=== PATIENT | female | born 1960 | race Caucasian/White ===

== ENCOUNTER 2017-03-26 08:14 | Day surgery (SDC) | payer OTHER ==
[2017-03-21 10:02] VITALS: Ht 161.3 cm; Wt 141.7 kg
--- NOTE | 2017-03-21 10:37 | PAT Medication Instructions ---
Service Date Mar 21, 2017. Current Home Medication List Lzavxhs-Cpwjfcmtvlvrl-Irmvtfur (Excedrin Migraine), 1 TAB PO QD PRN for Migraine Eletriptan (Relpax), 20 MG PO DIRECTED PRN for Migraine Metoprolol Tartrate (Lopressor) (Lopressor), 1 TAB PO QDL Medication Instructions For Your Scheduled Surgery - Hold the following medications from now until surgery: Bkefckr-Zikjiwzwcavut-Padfjozs (Excedrin Migraine), 1 TAB PO QD PRN for Migraine - Take the following medications the morning of surgery with a sip of water: Metoprolol Tartrate (Lopressor) (Lopressor), 1 TAB PO QDL (or bring it with you , depending on surgery time) Eletriptan (Relpax), 20 MG PO DIRECTED PRN for Migraine (if needed) If you have any questions please call us at [phone] or [phone] or [phone]
--- NOTE | 2017-03-21 11:15 | DIAGNOSTIC IMAGING REPORT ---
CHEST 2 VIEWS ROUTINE HISTORY: 56 years-old Female pat preoperative exam. No acute chest complaints. COMPARISON: None available TECHNIQUE: PA and lateral views of the chest FINDINGS: Cardiomediastinal and hilar silhouettes are within normal limits. No pneumothorax, pleural effusion, focal airspace consolidation or overt pulmonary edema. The bones of the chest are grossly intact. Multilevel endplate spurring throughout the spine. IMPRESSION: No acute process. The above report was generated using voice recognition software. It may contain grammatical, syntax or spelling errors. Electronically signed by: Trip Loomis M.D. 03/21/2017 11:14 AM Dictated Date/Time: 03/21/2017 11:13 AM
[2017-03-21 11:22] LABS: BASO % 0.6 %; BASO ABS # 0.04 K/uL (0-0.2); EOS % 3.4 %; EOS ABS # 0.23 K/uL (0-0.5); HEMATOCRIT 45.2 % (37-47); HEMOGLOBIN 14.8 g/dL (12.0-16.0); IG# 0.01 K/uL (0.00-0.02); LYMPH % 35.9 %; LYMPH ABS # 2.46 K/uL (1.2-3.4); MEAN CELL VOLUME 91.5 fL (80-100); MEAN CORPUSCULAR HGB CONC 32.7 g/dl (32-36); MEAN PLATELET VOLUME 9.6 fL (7.4-10.4); MONO ABS # 0.48 K/uL (0.11-0.59); NEUT ABS # 3.63 K/uL (1.4-6.5); PLATELET COUNT 306 K/uL (130-400); WHITE BLOOD COUNT 6.85 K/uL (4.8-10.8)
[2017-03-21 11:25] LABS: CALCIUM 9.3 mg/dl (8.5-10.1); CREATININE 0.62 mg/dl (0.60-1.20); POTASSIUM 4.1 mmol/L (3.5-5.1)
--- NOTE | 2017-03-25 12:57 | HISTORY & PHYSICAL EXAMINATION ---
DATE OF ADMISSION: 03/26/2017 CHIEF COMPLAINT: Left shoulder pain. HISTORY OF PRESENT ILLNESS: A 56-year-old female patient of Dr. Bloom'ladi complaining of a fall on her left shoulder in December of 2016. She was apparently at home in her driveway when she sustained a fall. She waited for some period of time before seeking medical attention, but an MRI did confirm a rotator cuff tear, impingement and AC arthritis. After failure of conservative treatment, she wished to proceed with a left shoulder arthroscopic rotator cuff repair, subacromial decompression and possible distal clavicle excision. PAST MEDICAL HISTORY: Hypertension, snoring with no history of sleep apnea, osteoarthritis, obesity. SOCIAL HISTORY: Nonsmoker, nondrinker. PAST SURGICAL HISTORY: Right shoulder surgery and a tubal ligation. FAMILY HISTORY: Noncontributory. REVIEW OF SYSTEMS: The patient complains of left shoulder pain and weakness. Otherwise, denies any shortness of breath, chest pain, nausea, vomiting or any other joint complaints. MEDICATIONS: Include metoprolol 50 mg daily, Excedrin p.r.n. and ibuprofen p.r.n. ALLERGIES: LATEX. PHYSICAL EXAMINATION: GENERAL: Well-developed, well-nourished 56-year-old female in no acute distress. She is alert and oriented x3 and pleasant. HEAD, EYES, EARS, NOSE, AND THROAT: Normocephalic, atraumatic. Extraocular motions are intact. Pupils are equal and reactive to light. HEART: Regular rate and rhythm, no murmurs appreciated. LUNGS: Clear. ABDOMEN: Soft and nontender, bowel sounds are present. EXTREMITIES: Left shoulder reveals range of motion of 0-170 degrees with pain. She has 3/5 internal rotation, 4/5 external rotation strength. She has positive impingement maneuvering and generalized pain and crepitation with passive range of motion. DIAGNOSES: Left shoulder rotator cuff tear, acromioclavicular arthritis and impingement. She also has a history of hypertension, snoring with no history of sleep apnea, osteoarthritis and obesity. PLAN: The patient was advised of her diagnosis. Indications, risks, benefits, postop course have all been reviewed. The patient wishes to proceed with a left shoulder arthroscopic rotator cuff repair, possible subacromial decompression and possible distal clavicle excision. Necessary consent forms, preoperative testing and clearances will be obtained.
[~2017-03-26] VITALS: Ht 161.3 cm; Wt 141.7 kg
[~2017-03-26 08:14] MED LIST: ASPI-390 PO; CEFAZOLIN 3000MG IV PUSH 15 ML IV SCH; CEFAZOLIN IV 3,000 MG in SYRINGE 0 ML IV SCH; DEXAMETHASONE SOD INJ 4 MG/ML VIAL ONE; ELET20TA PO; LACTATED RINGER'S 1000ML 1,000 ML IV SCH; METO50TA16 PO; ROPIVACAINE 0.5% 5 MG/ML 30 ML VIAL ONE
[2017-03-26] MEDS ORDERED: EpHEDrine SULFATE INJ 50 MG/ML AMP IV PRN (08:15)
[2017-03-26] MEDS ORDERED: ATROPINE SULFATE 0.1 MG/ML 5ML SYR IV PRN (08:15)
[2017-03-26] MEDS ORDERED: ONDANSETRON INJ 2 MG/ML 2 ML VIAL IV PRN (08:15)
[2017-03-26] MEDS ORDERED: HYDROmorphone INJ 2 MG/ML SYR/VIAL IV PRN (08:15)
[2017-03-26] MEDS ORDERED: PHENYLEPHRINE 100MCG/ML 5ML SYR IV PRN (08:15)
[2017-03-26 08:50] VITALS: BP 150/93; PULSE 93; TEMP 36.5; O2SAT 95
[2017-03-26] MEDS ORDERED: EpINEphrine HCL INJ 1 MG/ML 1ML SYRINGE ONE ×2 (09:45→11:45)
[2017-03-26] MEDS ORDERED: MIDAZOLAM HCL 1 MG/ML 2ML VIAL ONE (10:11)
[2017-03-26] MEDS ORDERED: FENTANYL CITRATE INJ 50 MCG/1 ML 2 ML VIAL ONE ×3 (10:15→14:32)
--- NOTE | 2017-03-26 10:46 | History & Physical Bridge Note ---
H&P Re-Evaluation Bridge Note: I have examined the patient, reviewed the History & Physical and in the interval since the performance of the History & Physical I have noted the following changes of clinical significance: No changes noted
[2017-03-26] MEDS ORDERED: HYDROmorphone INJ 2 MG/ML SYR/VIAL ONE ×2 (12:05→14:39)
[2017-03-26] MEDS ORDERED: SUCCINYLCHOLINE CHLORIDE 20 MG/ML 10 ML VIAL IV ONE (12:34)
[2017-03-26] MEDS ORDERED: ROCURONIUM BROMIDE 10 MG/ML 5 ML VIAL IV ONE (12:34)
[2017-03-26] MEDS ORDERED: ONDANSETRON INJ 2 MG/ML 2 ML VIAL ONE ×2 (12:34→15:28)
[2017-03-26] MEDS ORDERED: ALBUTEROL HFA INHALER 8.5 GM INH ONE (12:34)
[2017-03-26] MEDS ORDERED: LIDOCAINE HCL 2% 2 ML VIAL (20MG/ML) ONE (12:34)
[2017-03-26] MEDS ORDERED: PHENYLEPHRINE HCL INJ 10 MG/ML VIAL ONE (12:34)
[2017-03-26] MEDS ORDERED: DEXAMETHASONE SOD INJ 4 MG/ML VIAL ONE (12:34)
[2017-03-26] MEDS ORDERED: ETOMIDATE 2 MG/ML 20 ML VIAL IV ONE (14:32)
[2017-03-26] MEDS ORDERED: GLYCOPYRROLATE INJ 0.2 MG/ML VIAL ONE (14:42)
[2017-03-26] MEDS ORDERED: NEOSTIGMINE METHYLSULFATE 5 MG/5 ML SYR ONE (14:42)
[2017-03-26] MEDS ORDERED: KETOROLAC TROMETHAMINE 30 MG/ML VIAL ONE (14:42)
--- NOTE | 2017-03-26 14:44 | [facility] Post Operative Brief Note ---
Immediate Operative Summary Operative Date Mar 26, 2017. Pre-Operative Diagnosis left shoulder rotator cuff tear, acromioclavicular arthritis and impingement.morbid obesity bmi 54.5 Post-Operative Diagnosis left shoulder rotator cuff tear, acromioclavicular arthritis and impingement with bicep tendon rupture,morbid obesity Procedure(s) Performed Left Shoulder Arthroscopy with Subacromial Decompression, Distal Clavicle Excision, Debridement and Suture placement, Open Rotator Cuff Repair, Supraspinatus and Subscapularis,increased difficulty morbid obesity Surgeon [facility] Attendant Surgeon(s) DEWAYNE Puga Estimated Blood Loss 20ml Findings as above Specimens none per surgeon Drains none Anesthesia general regional Complication(s) None Disposition Recovery Room / PACU
[2017-03-26] MEDS ORDERED: OXYC-57 PO (15:00)
[2017-03-26] MEDS ORDERED: OXYCODONE/ACETAMINOPHEN 5-325 TAB PO PRN ×2 (15:00)
[2017-03-26] MEDS ORDERED: METOPROLOL TARTRATE 1 MG/ML VIAL ONE (15:01)
--- NOTE | 2017-03-26 15:03 | Discharge Instructions ---
Discharge Instructions Date of Service Mar 26, 2017. Admission Reason for Admission: Left Shoulder Rotator Cuff Tear, Impingement Syndr Discharge Discharge Diagnosis / Problem: Left shoulder Rotator cuff repair, open. Discharge Goals Goal(s): Improve function Activity Recommendations Activity Limitations: as noted below . Instructions / Follow-Up Instructions / Follow-Up Please see home instructions and exercises printed in your chart. Percocet for pain as needed. No formal physical therapy needed until follow up. Follow up with Dr. Bloom 10-12 days post op as scheduled, call [phone] to confirm. Current Hospital Diet Patient's current hospital diet: Discharge Diet Recommended Diet: Regular Diet Procedures Procedures Performed: Left Shoulder Arthroscopy with Subacromial Decompression, Distal Clavicle Excision, Debridement and Suture placement, Open Rotator Cuff Repair, Supraspinatus and Subscapularis,increased difficulty morbid obesity Pending Studies Studies pending at discharge: no Medical Emergencies . Who to Call and When: Medical Emergencies: If at any time you feel your situation is an emergency, please call 911 immediately. . Non-Emergent Contact Non-Emergency issues call your: Primary Care Provider . "Provider Documentation" section prepared by Nabor Ramsey. . VTE Core Measure Inpt VTE Proph given/why not?: [facility] [place] Drug Monitoring Program Search Results: patient reviewed within database, no issues identified
[2017-03-26] MEDS ORDERED: SODIUM CHLORIDE 0.9% 1000ML 1,000 ML IV SCH (15:05)
[2017-03-26 16:00] VITALS: BP 156/72; PULSE 105; TEMP 36.4; O2SAT 92
--- NOTE | 2017-03-26 16:20 | Anesthesiology Progress Note ---
Anesthesia Post Op Note Date & Time Mar 26, 2017 at 16:19 Vital Signs Pain Intensity: 0 Vital Signs Past 12 Hours Date Time Temp Pulse Resp B/P (MAP) Pulse Ox O2 Delivery O2 Flow Rate FiO2 03/26/17 15:40 36.2 100 20 145/75 90 Room Air 03/26/17 15:30 101 20 149/81 90 Room Air 03/26/17 15:20 99 20 148/80 94 Oxymask 10 03/26/17 15:10 96 20 139/90 94 Oxymask 10 03/26/17 15:00 36.4 101 16 170/99 94 Oxymask 10 03/26/17 08:50 36.5 93 20 150/93 (112) 95 Room Air Notes Mental Status: alert / awake / arousable, participated in evaluation Pt Amnestic to Procedure: Yes Nausea / Vomiting: adequately controlled Pain: adequately controlled Airway Patency, RR, SpO2: stable & adequate BP & HR: stable & adequate Hydration State: stable & adequate Anesthetic Complications: no major complications apparent
[2017-03-26 16:24] VITALS: BP 145/72; PULSE 111; TEMP 36.6; O2SAT 94
--- NOTE | 2017-03-27 07:55 | OPERATIVE REPORT ---
DATE OF OPERATION: 03/26/2017 HISTORY OF PRESENT ILLNESS: The patient is a 56-year-old female who suffered an injury to her left shoulder. She has had chronic pain and weakness since the injury. She put off having surgery for a period of time and recently worked up with an MRI demonstrating a complete tear of the upper subscapularis tendon with retraction, supraspinatus tendon tear, subacromial impingement, type 2 acromion, but some hypertrophy of the AC joint and AC joint arthritis on MRI. She appears to have a ruptured biceps. She also has morbid obesity, BMI is approximately 54. PREOPERATIVE DIAGNOSIS: Left shoulder chronic rotator cuff tear, subacromial impingement, acromioclavicular joint arthritis and morbid obesity, BMI 54. POSTOPERATIVE DIAGNOSIS: Same including subacromial impingement, grade 4 DJD AC joint and chronic subacromial bursitis, rupture of long head of biceps tendon with retraction. PROCEDURE: Left shoulder arthroscopic subacromial decompression, distal clavicle excision, debridement and suture placement followed by an open rotator cuff repair including the supraspinatus and subscapularis with increased difficulty due to morbid obesity, BMI 54. SURGEON: Dr. Bloom. COMMERCIAL PORTFOLIO MANAGER: Nabor Ramsey PA-C. ANESTHESIA: Regional block and general. OPERATIVE PROCEDURE: The patient had regional block anesthetic and general anesthetic. [facility] in 70 degree beach chair position. Her left shoulder was examined under anesthesia. She had a very obese arm, pendulous large breasts, obese upper body. Her left upper extremity was prepped and draped with ChloraPrep. Arthroscopy was started with a posterior arthroscopy portal in the soft spot, the anterior glenoid and the rotator interval, lateral portal in the subacromial space. We marked off the incision anteriorly in the anterior deltopectoral interval. With the arthroscopic instrumentation advanced through the posterior portal intraarticular findings demonstrated that she had a typical comma sign consistent with the subscap tear. She had retracted subscapularis tendon tear not all the way to the glenoid, but close to it. The tear extended into the supraspinatus which was completely torn off the greater tuberosity. Biceps tendon was ruptured and retracted. The glenohumeral joint actually had good articular cartilage and the labrum was intact. Subacromial space, there was fraying in the CA ligament consistent with impingement, type 2 acromion, some prominent inferior AC joint spurs and prominent inferior lower aspect of clavicle grade 4 wear on the articular surface of the clavicle. There were chronic thickened bursal bleeders and bands. Attention was first taken to the glenohumeral joint space. I freed up any adhesions between the anterior labrum, anterior glenoid area and subscapularis. I released some of the rotator interval area so we could place traction with a probe on the comma tissue and see if the subscapularis was repaired and I felt it would be repairable and we would be able to mobilize it satisfactorily. The subacromial bursa was resected in the subacromial space to fully visualize the rotator cuff tear pattern then I went ahead and released the CA ligament off the anterior acromion, ablated the inferior AC joint capsule to expose 1 cm distal clavicle, exposed the distal clavicle well. I then did decompression with a 5.5 bur planing down the acromion to a type 1 flat shape and resecting 1 cm distal clavicle using the bur through the lateral and anterior portal and a 30 and 70 degree arthroscope to visualize resection. We coagulated several bleeders and removed all pathological bursal tissue. I then used a Scorpion suture passer to place luggage tag sutures into the rotator cuff tissue to place traction on the tissue. Then the shoulder was reprepped prior the open part of the procedure. We used Hibiclens. Then I made a longitudinal incision in the deltopectoral interval. Skin was incised sharply. Deep layer fat was divided down to the fascia. Subcutaneous bleeders were cauterized. Some of the tissues were edematous from arthroscopy. We evacuated the fluid. The cephalic vein was dissected out and retracted laterally with the deltoid. Some of the large crossing veins were tied off with silk ties and divided. Deltoid was retracted laterally, pectoralis medially. The clavipectoral fascia, which was inflamed and somewhat thickened, was released at the lateral aspect of the strap muscles and conjoined tendon up to the CA ligament which was partially released. Then we placed a self-retaining retractor in place and identified the subscapularis tendon tear. The torn edge of the tendon was identified and a #1 Vicryl suture was placed for traction purposes. The adhesions on the outer aspect of the subscap were released with Metzenbaum scissors. Then we were able to fully mobilize the subscapularis back anatomically for repair. Then we retrieved the sutures that were in the lateral cannula out through the anterior incision, which were the traction sutures on the supraspinatus and I was able to fully reduce that and get an anatomic repair of that as well. At this point, the footprint of the supraspinatus through the bicipital groove area and down into the subscapularis footprint was debrided with a curette and rongeur until we had a bony bleeding surface for repair. Then the rotator cuff was repaired using a 5.5 mm Healicoil suture anchor one at the medial row fixation, just off the articular margin of the subscapularis footprint and one in similar place off the supraspinatus footprint. I did 2 horizontal mattress sutures through the subscapularis and through the supraspinatus. Then we tied these using a Tristen sliding locking knot with reversed half hitches an alternating posts. I then placed the tails of those sutures into a 5.5 footprint anchors laterally for both those anchors that were placed. I then placed the 2 luggage tag sutures which we placed and readjusted into the comma tissue area into another anchor splitting the distance between the other 2 anchors. This construct was very secure through 30 degrees of external rotation, 90 degrees of abduction and 90 degrees of forward elevation without any tension on the repair. The wound was irrigated and then the deltopectoral muscles were allowed to fall back anatomically and then the subcutaneous tissue closed with interrupted 2-0 Vicryl and skin closed with shruthi, portal sites were closed with nylon sutures and sterile dressings were applied and a sling immobilizer. There was increased difficulty due to morbid obesity with a BMI of 54+. Nabor Ramsey PA-C was my funeral home assistant through the entire procedure. He assisted in patient positioning, arm positioning, prepping, draping and he participated in the suture repair of the subcutaneous and skin, dressings and sling application, and will participate in the postoperative care of this patient. I attest to the content of the Intraoperative Record and any orders documented therein. Any exceptions are noted below. [facility]
== END 2017-03-26 17:20 | disposition home or self-care (01) ==
LOC: C.ACU 08:14
PROVIDERS: ATTEND Orthopaedic Surgery Sports Medicine
DX: M19.012 Primary osteoarthritis, left shoulder (principal); S46.012A Strain of muscle(s) and tendon(s) of the rotator cuff of left shoulder, initial encounter; W19.XXXA Unspecified fall, initial encounter; M75.122 Complete rotator cuff tear or rupture of left shoulder, not specified as traumatic; M25.812 Other specified joint disorders, left shoulder; M75.52 Bursitis of left shoulder; E66.01 Morbid (severe) obesity due to excess calories; Z68.43 Body mass index [BMI] 50.0-59.9, adult; I10 Essential (primary) hypertension; R06.83 Snoring; Z98.51 Tubal ligation status